=== PATIENT | male | born 1955 | race Caucasian/White ===

== ENCOUNTER 2018-10-05 06:32 | Day surgery (SDC) | payer OTHER ==
[2018-10-02 13:06] VITALS: BP 168/104
[2018-10-02 13:32] LABS: BASOPHILS # (AUTO) 0.06 x10^3/uL (0-0.1); BASOPHILS % (AUTO) 1 % (0-1); EOSINOPHILS # (AUTO) 0.27 x10^3/uL (0-0.4); EOSINOPHILS % (AUTO) 3 % (1-7); LYMPHOCYTES # (AUTO) 2.13 x10^3/uL (1-3.4); LYMPHOCYTES % (AUTO) 22 % (22-44); MD NO; MEAN CORPUSCULAR HEMOGLOBIN 30.9 pg (27.5-34.5); MEAN CORPUSCULAR HGB CONC 33.1 g/dL (33.2-36.2); MEAN CORPUSCULAR VOLUME 93.4 fL (81-97); MEAN PLATELET VOLUME 9.7 fL (7.4-10.4); MONOCYTES # (AUTO) 0.83 x10^3/uL (0.2-0.8); MONOCYTES % (AUTO) 9 % (2-9); NEUTROPHILS # (AUTO) 6.48 x10^3/uL (1.8-6.8); NEUTROPHILS % (AUTO) 66 % (42-75); PLATELET COUNT 198 x10^3/uL (130-400); RED BLOOD COUNT 4.96 x10^6/uL (4.38-5.82); RED CELL DISTRIBUTION WIDTH 13.8 % (9.4-14.8)
[2018-10-02 13:42] LABS: INTERNATIONAL NORMALIZED RATIO 1.01 (0.93-1.1); PROTHROMBIN TIME 10.6 Seconds (9.6-11.5)
[2018-10-02 13:47] LABS: ALANINE AMINOTRANSFERASE 54 U/L (12-78); ALBUMIN 3.9 g/dL (3.4-5.0); ANION GAP 6 mmol/L (5-15); CALCIUM 8.8 mg/dL (8.5-10.1); CHLORIDE 110 mmol/L (98-107); CREATININE 0.95 mg/dL (0.7-1.3)
[2018-10-02 13:49] LABS: ALKALINE PHOSPHATASE 77 U/L (45-117); BILIRUBIN,TOTAL 0.3 mg/dL (0.2-1.0); TOTAL PROTEIN 7.8 g/dL (6.4-8.2)
[~2018-10-05] VITALS: Ht 190.5 cm; Wt 120.4 kg
[~2018-10-05 06:32] MED LIST: ATEN25TA PO; BUDE10.2 INH; DILT180C72 PO; GABA300C10 PO; MAGN400T7 PO; MORP-53 PO; NITR0.4T28 SL; NITR1PAT22 TD; OXYC5CAP2 PO; POLY17PO5 PO; SENN1TAB67 PO; TIOT18CA INH
[2018-10-05] MEDS ORDERED: SODIUM CHLORIDE 0.9% 1,000 ML IV SCH (06:47)
[2018-10-05] MEDS ORDERED: LIDOCAINE 1%, 20ML ONE (07:41)
[2018-10-05] MEDS ORDERED: MIDAZOLAM 1 MG/ML, 2ML ONE (07:51)
[2018-10-05] MEDS ORDERED: FENTANYL PF 250 MCG/5ML ONE (07:51)
[2018-10-05] MEDS ORDERED: ISOPROTERENOL 0.2MG/ML, 5ML ONE (09:47)
[2018-10-05] MEDS ORDERED: FENTANYL PF 100 MCG/2ML ONE (10:46)
[2018-10-05] MEDS ORDERED: TEMPLATE NON-FORMULARY MED. (Oxycodone Hcl** 5 MG) PO PRN (11:00)
[2018-10-05] MEDS ORDERED: ACETAMINOPHEN 325 MG TABLET PO PRN ×2 (11:00→11:30)
[2018-10-05] MEDS ORDERED: SENNA/DOCUSATE TABLET PO PRN (11:00)
[2018-10-05] MEDS ORDERED: OXYcodone 5 MG/5 ML ORAL.SOL UDC ONE (11:18)
[2018-10-05] MEDS ORDERED: ACETAMINOPHEN 650 MG/20.3 ML UDC ONE (11:18)
[2018-10-05] MEDS ORDERED: HYDROmorphone 2 MG/ML, 1ML ONE (11:18)
[2018-10-05] MEDS: HYDROmorphone 1 MG/ML, 1ML AMP IVPush PRN ×2 (11:25→11:37)
[2018-10-05] MEDS ORDERED: MORPHINE SULFATE 4 MG/ML, 1ML IVPush PRN (11:30)
[2018-10-05] MEDS ORDERED: FENTANYL PF 100 MCG/2ML IV PRN (11:30)
[2018-10-05] MEDS ORDERED: PROMETHAZINE 25 MG/ML, 1ML IM PRN ×2 (11:30)
[2018-10-05] MEDS ORDERED: PROMETHAZINE 25 MG/ML, 1ML IV PRN (11:30)
[2018-10-05] MEDS ORDERED: LABETALOL 5MG/ML, 20ML IV PRN (11:30)
[2018-10-05] MEDS ORDERED: hydrALAzine 20 MG/ML, 1ML IV PRN (11:30)
[2018-10-05] MEDS ORDERED: PROMETHAZINE 25 MG SUPP PR PRN (11:30)
[2018-10-05] MEDS ORDERED: OXYcodone 5 MG/5 ML ORAL.SOL UDC PO PRN (11:30)
[2018-10-05] MEDS ORDERED: ONDANSETRON 2MG/ML, 2ML IV PRN (11:30)
[2018-10-05] MEDS ORDERED: ONDANSETRON ODT 8 MG PO PRN (11:30)
[2018-10-05] MEDS ORDERED: MEPERIDINE/PF 25MG/0.5ML IVPush PRN (11:30)
[2018-10-05] MEDS ORDERED: PROMETHAZINE 12.5 MG SUPP PR PRN (11:30)
[2018-10-05] MEDS ORDERED: NITROGLYCERIN 0.2 MG/HR PATCH TD PRN (12:00)
[2018-10-05] MEDS ORDERED: ROCURONIUM 10MG/ML,5ML ONE (14:46)
[2018-10-05] MEDS ORDERED: NEOSTIGMINE 1 MG/ML, 10ML ONE (14:46)
[2018-10-05] MEDS ORDERED: GLYCOPYRROLATE 0.2MG/1ML, 5ML ONE (14:46)
[2018-10-05] MEDS ORDERED: PROPOFOL 10 MG/ML, 20ML ONE (14:46)
[2018-10-05] MEDS ORDERED: TEMPLATE NON-FORMULARY MED. (Budesonide/Formoterol Fumarate (Symbicort 160-4.5 Mcg Inhaler INH SCH (21:00)
[2018-10-05] MEDS ORDERED: GABAPENTIN 300 MG CAPSULE PO SCH (21:00)
[2018-10-05] MEDS ORDERED: MORPHINE SULFATE 15 MG PO SCH (21:00)
[2018-10-06] MEDS ORDERED: POLYETHYLENE GLYCOL 17 GM PACKET PO SCH (09:00)
[2018-10-06] MEDS ORDERED: TEMPLATE NON-FORMULARY MED. (Magnesium Oxide** 400 MG) PO SCH (09:00)
[2018-10-06] MEDS ORDERED: ATENOLOL 25 MG TABLET PO SCH (09:00)
[2018-10-06] MEDS ORDERED: TEMPLATE NON-FORMULARY MED. (Tiotropium Bromide** (Spiriva**) 18 MCG) INH SCH (09:00)
[2018-10-06] MEDS ORDERED: TEMPLATE NON-FORMULARY MED. (Diltiazem Hcl** (Diltiazem Er**) 180 MG) PO SCH (09:00)
== END 2018-10-05 15:22 | disposition home or self-care (01) ==
LOC: CACL 06:32
PROVIDERS: ATTEND Internal Medicine Cardiovascular Disease
DX: I47.1 Supraventricular tachycardia (principal); I25.10 Atherosclerotic heart disease of native coronary artery without angina pectoris; I10 Essential (primary) hypertension; I45.6 Pre-excitation syndrome; Z98.890 Other specified postprocedural states; Z79.899 Other long term (current) drug therapy
CPT/HCPCS: 36415; 71046; 80053; 85025; 85610; 85730; 93613; 93621; 93623; 93653; C1730; C1732; C1894; J1170; J2250; J2704; J2710; J3010; J3490